=== PATIENT | male | born 1975 | race Caucasian/White ===

== ENCOUNTER 2021-02-06 06:43 | Day surgery (SDC) | payer OTHER, SELFPAY ==
[2021-02-04 14:39] VITALS: BMI 36.6
--- NOTE | 2021-02-06 07:09 | ANES.PREANE2 ---
Pre-Anesthetic Assessment Pre-Anesthetic Assessment: Height/Weight: Height 1.83 m Weight 122.47 kg Preop Diagnosis: bleeding Proposed Procedure: Operation Date: 02/06/21 08:30 Proposed Procedures p Colonoscopy 69358(Not Applicable) - Parish Nichols MD Familial anesthetic complications: None Was Beta Chely taken within 24 hours: N/A Was Clonidine taken within 24 hours: N/A Last intake: > 8 hrs Social: Social History: Tobacco and No alcohol Comment: vapes Exam: Pre-Anes Outpt Exam: alert, oriented x 3, clear to auscultation bilaterally and regular rate & rhythm Airway: Cervical ROM: WNL MP: 4 Dentition: Full GI: GI: GERD Anesthetic Plan: ASA status: 1 Anesthesia: MAC Risk of > 500 ml blood loss (7ml/kg in children): No Data Anesthesia Cardiac Studies: No Data to Display
[2021-02-06 07:33] VITALS: BP 138/94; PULSE 87; RESP 18; TEMP 36.4; O2SAT 95
[2021-02-06] MEDS: sodium chloride 0.9% 1,000 ML 30 ML IV (07:44)
--- NOTE | 2021-02-06 09:07 | PM.OPSURHP ---
Providers/Chief Complaint Admitting Physician: Parish Nichols Primary Care Provider: Azucena Henderson Chief Complaint: Hx of rectal bleeding History of Present Illness Humberto Barrientos is a 45 year old male who presents for a diagnostic colonoscopy. He has a history of rectal bleeding. He also has a history of intermittent diarrhea. Review of Systems General: Reports: 10 or more systems reviewed and unremarkable except in HPI and below Const: Denies: fever(s) Card: Denies: chest pain or irregular heart rhythm Resp: Denies: dyspnea Medications/Allergies Home Medications Medication Instructions Recorded Confirmed Last Taken Type omeprazole magnesium [Prilosec OTC] 20 mg PO DAILY PRN 02/04/21 02/06/21 02/04/21 History Allergies Allergy/AdvReac Type Severity Reaction Status Date / Time No Known Allergies Allergy Verified 02/04/21 14:41 Vital Signs Vitals Signs: Last Vital Signs Temp 97.5 F L 02/06/21 07:33 Pulse 87 02/06/21 07:33 Resp 18 02/06/21 07:33 BP 138/94 02/06/21 07:33 Pulse Ox 95 02/06/21 07:33 Weight: Weight last 48 hrs Weight 270 lb Physical Exam Const: COMMON NORMALS: no acute distress and patient oriented x3 GENERAL APPEARANCE: cooperative, comfortable and well developed HENMT: COMMON NORMALS: normocephalic and moist oral mucous membranes HEAD & SCALP: normocephalic Chest: COMMONS NORMALS: normal inspection of the chest Resp: COMMON NORMALS: normal respiratory effort and clear to auscultation bilaterally AUSCULTATION: clear to auscultation bilaterally Cardio: COMMON NORMALS: regular rate, regular rhythm, No gallops present (Cardio), No murmurs present (Cardio) and No rub (Cardio) RATE: regular rate RHYTHM: regular rhythm Extremity: COMMON NORMALS: normal to inspection Neuro: COMMON NORMALS: patient oriented x3 and no focal motor deficits Skin: COMMON NORMALS: no rashes or lesions noted GENERAL SKIN EXAM: no rashes or lesions noted A&P Assessment and plan (1) Rectal bleed: We discussed the risks of bleeding, perforation, and sedation. The patient has no further questions and wishes to proceed. Status: Acute (2) Chronic diarrhea: Status: Acute Coding Level of Care Code Acute Wash Crew Person for [facility] Fwd Diagnoses Rectal bleed K62.5 Chronic diarrhea K52.9
[2021-02-06 09:47] VITALS: BP 97/66; PULSE 81; RESP 16; TEMP 36.1; O2SAT 93
[2021-02-06 10:16] VITALS: BP 111/84; PULSE 68; RESP 18; TEMP 36.2; O2SAT 97
--- NOTE | 2021-02-06 17:26 | ANE.PACU2 ---
Inpatient post-anesthesia follow up: Airway intact: Yes Vital signs: Temperature 97.1 F Pulse Rate 68 Respiratory Rate 18 Blood Pressure 111/84 Pulse Oximetry 97 Oxygen Delivery Me thod Room Air Oxygen Flow Rate Fraction of Inspir ed Oxygen Hydration adequate: Yes Nausea and vomiting: No Pain level: 2 Mental status: Baseline
== END 2021-02-06 10:25 | disposition home or self-care (01) ==
PROVIDERS: PCP Physician Assistant; Visit Provider Family Medicine
PROC: 0DJD8ZZ Inspection of Lower Intestinal Tract, Via Natural or Artificial Opening Endoscopic (ICD-10-PCS; CPT 45378; principal; 2021-02-06 08:30)
DX: K62.5 Hemorrhage of anus and rectum (principal); K52.9 Noninfective gastroenteritis and colitis, unspecified; K57.30 Diverticulosis of large intestine without perforation or abscess without bleeding; K63.5 Polyp of colon; K21.9 Gastro-esophageal reflux disease without esophagitis; F17.290 Nicotine dependence, other tobacco product, uncomplicated
CPT/HCPCS: 12345; 45380; 88305; 96360; 96361; J2704; J7030